=== PATIENT | female | born 1995 | race African-American/Black ===

== ENCOUNTER 2017-03-12 19:37 | Emergency (ER) | payer BC ==
[2017-03-12] MEDS ORDERED: Sulfameth/Trimethoprim DS 800-160mg TAB ONE (20:13)
[2017-03-12 20:23] LABS: Pregnancy Test - Urine (BHCG) Negative (Negative); Pregu Control Background? CLEAR/WHITE (CLR/WHITE); Pregu Control Bar Appear? YES (CONTROL BAR); Specific Gravity 1.014 (1.002-1.036)
[2017-03-12] MEDS ORDERED: Ketorolac Tromethamine 30 MG/ML VIAL ONE (20:23)
== END 2017-03-12 20:45 | disposition home or self-care (01) ==
LOC: NAV ERS 19:37
DX: N10 Acute pyelonephritis (principal); Z79.2 Long term (current) use of antibiotics
CPT/HCPCS: 81025; 96372; J1885